=== PATIENT | male | born 1990 | race Caucasian/White ===

== ENCOUNTER 2018-12-04 16:45 | Inpatient (IN) | payer SELFPAY ==
[~2018-12-04] VITALS: Ht 152.4 cm; Wt 60.3 kg
[2018-12-04] MEDS ORDERED: SODIUM CHLORIDE 0.9% 1000ML BAG (SEPSIS BOLUS) IV ONE (17:00)
[2018-12-04] MEDS ORDERED: CEFTRIAXONE 2 G PREMIX 50 ML IV ONE (18:00)
[2018-12-04] MEDS ORDERED: METRONIDAZOLE 500 MG PREMIX 100 ML IV ONE (18:00)
[2018-12-04 18:05] LABS: HEMATOCRIT. 51.7 % (42.0-52.0); HEMOGLOBIN. 17.6 g/dL (14.0-18.0); MEAN CORPUSCULAR HEMOGLOBIN 28.2 pg (28.0-32.0); MEAN CORPUSCULAR VOLUME 83.1 fL (80.0-94.0); MEAN PLATELET VOLUME 8.8 fl (7.4-10.4); PLATELET 71 x1000/uL (130-400); RED BLOOD CELL COUNT 6.22 mill/uL (4.7-6.1)
[2018-12-04 18:08] LABS: INR 1.4; PROTHROMBIN TIME 13.8 sec (9.1-11.1)
[2018-12-04 18:19] LABS: CHLORIDE 102 mEq/L (98-107)
[2018-12-04 18:32] LABS: PLATELET ESTIMATE MARKEDLY DECREASED
[2018-12-04] MEDS ORDERED: MORPHINE SULFATE 4 MG/ML CPJ (NOT FOR IM USE) IV ONE (22:30)
[2018-12-04 23:13] LABS: HEPATITIS B SURFACE ANTIGEN NEGATIVE
[2018-12-04 23:29] LABS: CLARITY URINE TURBID (CLEAR); COLOR URINE ORANGE (YELLOW); KETONES URINE 2+ (NEGATIVE); LEUKOCYTE ESTERASE URINE TRACE (NEGATIVE); NITRITE URINE POSITIVE (NEGATIVE); OCCULT BLOOD URINE 1+ (NEGATIVE); PROTEIN URINE 1+ (NEGATIVE); SPECIFIC GRAVITY URINE 1.027 (1.005-1.030); UROBILINOGEN URINE 0.2 E.U./dL (0.2-1.0)
[2018-12-04 23:42] LABS: HEPATITIS A AB IGM NEGATIVE (NEGATIVE)
[2018-12-05] MEDS ORDERED: DOCUSATE SODIUM 100MG CAPSULE PO PRN (00:15)
[2018-12-05] MEDS ORDERED: CLONIDINE 0.1MG TABLET PO PRN (00:15)
[2018-12-05] MEDS ORDERED: ACETAMINOPHEN 650MG/20.3ML UDC GT PRN (00:15)
[2018-12-05] MEDS ORDERED: GUAIFENESIN 200MG/10ML SUGAR FREE UDC PO PRN (00:15)
[2018-12-05] MEDS ORDERED: DIPHENHYDRAMINE 50MG/ML VIAL IV PRN (00:15)
[2018-12-05] MEDS ORDERED: MAGNESIUM/ALUMINUM HYDROXIDE/SIMETHICONE 30ML UDC PO PRN (00:15)
[2018-12-05] MEDS ORDERED: VANCOMYCIN 1 G PREMIX 200 ML IV SCH (00:15)
[2018-12-05] MEDS ORDERED: NA PHOS,M-B/NA PHOS,DI-BA ENEMA 118ML PR PRN (00:15)
[2018-12-05] MEDS ORDERED: ACETAMINOPHEN 325MG TABLET PO PRN (00:15)
[2018-12-05] MEDS ORDERED: IPRATROPIUM/ALBUTEROL 0.5-3(2.5)MG/3ML NEB INH PRN (00:15)
[2018-12-05] MEDS ORDERED: PIPERACILLIN/TAZ 3.375G PREMIX 50 ML IV SCH ×3 (00:15→12:00)
[2018-12-05] MEDS ORDERED: ONDANSETRON HCL 4MG/2ML INJ IV PRN (00:15)
[2018-12-05 01:00] VITALS: BP 105/57
[2018-12-05 01:12] VITALS: BP 105/57
[2018-12-05 02:48] LABS: CLARITY URINE CLEAR (CLEAR); COLOR URINE DARK YELLOW (YELLOW); KETONES URINE 2+ (NEGATIVE); LEUKOCYTE ESTERASE URINE NEGATIVE (NEGATIVE); NITRITE URINE NEGATIVE (NEGATIVE); OCCULT BLOOD URINE TRACE (NEGATIVE); PROTEIN URINE TRACE (NEGATIVE); SPECIFIC GRAVITY URINE 1.024 (1.005-1.030); UROBILINOGEN URINE 0.2 E.U./dL (0.2-1.0)
[2018-12-05 02:57] LABS: *COCAINE SCREEN URINE NEGATIVE (NEGATIVE); METHADONE URINE SCREEN NEGATIVE (NEGATIVE); OPIATES URINE SCREEN PRESUMTIVE POSITIVE (NEGATIVE)
[2018-12-05 02:58] LABS: *AMPHETAMINES SCREEN URINE NEGATIVE (NEGATIVE); *BARBITURATES SCREEN URINE NEGATIVE (NEGATIVE); *BENZODIAZEPINES SCREEN URINE NEGATIVE (NEGATIVE); CANNABINOID URINE SCREEN NEGATIVE (NEGATIVE); PHENCYCLIDINE URINE SCREEN NEGATIVE (NEGATIVE)
[2018-12-05 04:00] VITALS: BP 99/49
[2018-12-05] MEDS ORDERED: VANCOMYCIN 1250MG in DEXTROSE 5% WATER 250ML IV NR (04:00)
[2018-12-05] MEDS: SODIUM CHLORIDE 0.9% INJ 3ML FLUSH IVF SCH ×2 (06:31→14:00)
[2018-12-05 08:00] VITALS: BP 103/62
[2018-12-05] MEDS ORDERED: PNEUMOCOCCAL 23-VAL P-SAC VAC 0.5 ML IM ONE (08:00)
[2018-12-05 11:48] LABS: BASOPHILS % 0.5 % (0.0-2.0); EOSINOPHILS % 6.5 % (0.0-5.0); HEMATOCRIT. 40.2 % (42.0-52.0); LYMPHOCYTES % 13.2 % (20.0-50.0); MEAN CORPUSCULAR HEMOGLOBIN 28.7 pg (28.0-32.0); MEAN CORPUSCULAR VOLUME 82.5 fL (80.0-94.0); MEAN PLATELET VOLUME 8.3 fl (7.4-10.4); MONOCYTES % 8.9 % (2.0-8.0); NEUTROPHILS % 70.9 % (40.0-76.0); PLATELET 54 x1000/uL (130-400); RED BLOOD CELL COUNT 4.87 mill/uL (4.7-6.1); RED CELL DISTRIBUTION WIDTH 14.3 % (11.6-14.6)
[2018-12-05 11:55] LABS: CHLORIDE 110 mEq/L (98-107)
[2018-12-05 12:00] VITALS: BP 100/50
[2018-12-05] MEDS: VANCOMYCIN 1250MG in DEXTROSE 5% WATER 250ML IV SCH ×2 (13:46→14:00)
[2018-12-05 14:20] VITALS: BP 100/50
== END 2018-12-05 15:10 | disposition home or self-care (01) | DRG 720 ==
LOC: ER 16:59 → 5WST 22:42 → EDBEDREQSVC 22:45 → EDBEDREQ 22:45
PROVIDERS: ADMIT Family Medicine; ATTEND Family Medicine
DX: A41.9 Sepsis, unspecified organism (principal); K74.60 Unspecified cirrhosis of liver; N28.1 Cyst of kidney, acquired; E86.0 Dehydration; K80.20 Calculus of gallbladder without cholecystitis without obstruction; R16.2 Hepatomegaly with splenomegaly, not elsewhere classified; N39.0 Urinary tract infection, site not specified
CPT/HCPCS: 36415; 71045; 74176; 80305; 82140; 83605; 84145; 84484; 86705; 86709; 86803; 87340; 93005; 96365; 96368; 99285; J0696; J2270; J2405; J2543; J3370; J3490; J7030; J7040; J7060